=== PATIENT | male | born 1995 | race Caucasian/White ===

== ENCOUNTER 2019-10-15 13:15 | Emergency (ER) | payer OTHER, SELFPAY ==
[2019-10-15 13:20] VITALS: BP 136/94; PULSE 98; RESP 18; TEMP 36.6; O2SAT 100
--- NOTE | 2019-10-15 13:50 | ED.FEVER ---
HPI - Fever General Chief Complaint: Fever Stated Complaint: fever Time Seen by Provider: 10/15/19 13:50 Source: patient Mode of arrival: ambulatory Limitations: no limitations History of Present Illness HPI Narrative: A 24 y/o male presents to the ED with c/o a 101.9 degree F fever this morning. Pt did not feel well yesterday so he went to [facility] for evaluation. Pt had a chest X-ray and bloodwork done and tested negative for influenza and pneumonia. Pt was told that he could not get COVID-19 testing there. Pt presented to the ED today to get a second opinion because his [id number] works at a intermediate and she is unable to work until it is confirmed that the pt is negative for COVID-19. Pt denies any recent travel and sick contacts but notes that he works at [employer]. He reports a sore throat, diarrhea, body aches and a PMHx of pneumonia, but denies N/V. Onset (ago): hour(s) Measured temperature: 38.8 C Related Data Allergies Allergy/AdvReac Type Severity Reaction Status Date / Time No Known Allergies Allergy Unknown Unverified 05/01/17 15:03 Review of Systems Review of Systems: All systems reviewed & are unremarkable except as noted in HPI and below Constitutional: Constitutional: Reports fever(s) (101.9 degree F) Comments: Reports: body aches ENT: Reports sore throat Gastrointestinal: Gastrointestinal: Reports diarrhea, Denies nausea and Denies vomiting PMFSH Past Medical History Medical History ADHD Deliberate self-cutting Surgical History Surgical History H/O heart surgery as a child Family History Family History Mother Diabetes mellitus Father Heart disease HLD (hyperlipidemia) Grandparent Heart disease Social History Social History Smoking status: Never smoker Comments PCP: Dr. Young Exam Const: General: healthy appearing, no acute distress and alert Nutritional Appearance: well nourished Orientation/consciousness: patient oriented x3 HENMT: Head: normal to inspection Resp: Effort & Inspection: normal respiratory effort Auscultation: clear to auscultation bilaterally Cardio: Rate: regular rate Rhythm: regular rhythm GI: GI Palp: Yes Soft to palpation and No Tenderness to palpation present (GI) Skin: General skin exam: normal color Rashes: no rashes Neuro: General: patient oriented x3, moves all extremities and no focal motor deficits Speech: normal speech Extrem: General: normal to inspection Course Vital Signs Vital signs: Vital Signs Temperature 36.6 C 10/15/19 13:20 Pulse Rate 98 10/15/19 13:20 Respiratory Rate 18 10/15/19 13:20 Blood Pressure 136/94 H 10/15/19 13:20 Pulse Oximetry 100 10/15/19 13:20 Temperature 36.6 C 10/15/19 13:20 Pulse Rate 98 10/15/19 13:20 Respiratory Rate 18 10/15/19 13:20 Blood Pressure 136/94 H 10/15/19 13:20 Pulse Oximetry 100 10/15/19 13:20 MDM - Fever MDM Narrative Medical decision making narrative: He was evaluated at another hospital yesterday including negative chest x-ray and flu swab. He came in today because his [id number] was not aloud to work due to the uncertainty of his diagnosis. I explained that we would not be able to to test him for COVD-19 due to limited supplies and restrictive guidelines on testing. Medical Records Attestation: I reviewed the patient's medical records. Lab Data Attestation: I reviewed the patient's lab results. Labs: Influenza A Screen Negative Reference Range: Negative Influenza B Screen Negative Reference Range: Negative Discharge Plan Discharge Clinical Impression: Upper respiratory infection Qualifiers: URI type: unspecified URI Qualified Code(s): J06.9 - Acute upper respiratory infection, unspecif
== END 2019-10-15 14:14 | disposition home or self-care (01) ==
PROVIDERS: Emergency Provider Emergency Medicine; PCP Internal Medicine Infectious Disease
DX: J06.9 Acute upper respiratory infection, unspecified (principal)
CPT/HCPCS: 87804; 99283

== ENCOUNTER 2023-02-25 14:09 | Emergency (ER) | payer OTHER, SELFPAY ==
[2023-02-25 14:19] VITALS: BP 132/82; PULSE 72; RESP 16; TEMP 37.2; O2SAT 100
[2023-02-25 14:20] VITALS: BP 132/82; PULSE 72; RESP 16; TEMP 37.2; O2SAT 100
--- NOTE | 2023-02-25 14:37 | ED.EAR ---
HPI - Ear Problem General Chief complaint: Ear Stated complaint: Abdominal Pain/SOB Time Seen by Provider: 02/25/23 14:37 Source: patient Mode of arrival: ambulatory Limitations: no limitations History of Present Illness HPI Narrative: 27-year-old male presented for complaint of left ear pain for about 3 months. He endorses using hydrogen peroxide last week and was able to get some ear wax out. Since then he has used a Q-tip and states he also cut the inside of his ear. States it feels like something is in the ear, and has muffled hearing. He denies tinnitus, dizziness, nausea, vomiting, fevers or chills. MD Complaint: ear pain Related Data Allergies Allergy/AdvReac Type Severity Reaction Status Date / Time No Known Allergies Allergy Unknown Verified 02/25/23 14:20 Review of Systems Review of Systems: CONSTITUTIONAL: Denies malaise, chills, or fever. EYES: Denies visual changes, redness, or discharge. ENT: Denies rhinorrhea, congestion, sinus pain, and sore throat. Reports left ear pain CARDIOVASCULAR: Denies chest pain, palpitations, or edema. RESPIRATORY: Denies cough or dyspnea. GASTROINTESTINAL: Denies abdominal pain, nausea, vomiting, diarrhea SKIN: Denies rash or itching. MUSCULOSKELETAL: Denies myalgia. NEUROLOGIC: Denies headache. All systems reviewed & are unremarkable except as noted in HPI and below PMFSH Past Medical History Medical History ADHD Deliberate self-cutting Surgical History Surgical History H/O heart surgery as a child Family History Family History Mother Diabetes mellitus Father Heart disease HLD (hyperlipidemia) Grandparent Heart disease Social History Social History Smoking status: Never smoker Comments At time of signature, agree with nursing past medical, surgical, social and family history. There is no relevant family history pertinent to the presenting complaint Exam Narrative: GENERAL: Well-appearing, and in no acute distress. HEAD: Normocephalic EYES: PERRLA, conjunctivae clear ENT: Nares clear. Mucous membranes moist. Right canal with impacted cerumen; Left canal erythemaous and swollen with purulent drainage, left tragal tenderness. Oropharynx not erythematous without lesions. CHEST: Clear to auscultation, breath sounds equal. No wheezing, rhonchi, rales, or stridor. No respiratory distress, speaks in full sentences. HEART: Regular rate and rhythm. No murmur heard. SKIN: Warm, dry, no rash. NEURO: Alert and oriented x3. PSYCH: Normal mood and affect Course Course Emergency Course: Patient is aware of diagnosis, understands and agrees to treatment plan. Anticipatory guidance given. Patient agrees to follow-up as directed and is aware of reasons to seek care at the emergency department. Portions of this record may have been created with voice recognition software Level of Care: Express Care Visit Vital Signs Vital signs: Vital Signs Temperature 98.9 F 02/25/23 14:19 Pulse Rate 72 02/25/23 14:19 Respiratory Rate 16 02/25/23 14:19 Blood Pressure 132/82 02/25/23 14:19 Pulse Oximetry 100 02/25/23 14:19 Oxygen Delivery Room Air 02/25/23 14:19 Temperature 98.9 F 02/25/23 14:20 Pulse Rate 72 02/25/23 14:20 Respiratory Rate 16 02/25/23 14:20 Blood Pressure 132/82 02/25/23 14:20 Pulse Oximetry 100 02/25/23 14:20 Oxygen Delivery Room Air 02/25/23 14:20 Reviewed Medical Decision Making MDM Narrative Medical decision making narrative: Discussed physical exam findings, left otitis externa. Right cerumen impaction, he states he will address it with [id number] Debrox. Advised supportive measures and signs/symptoms to go to the ER. Patient is appropriate for outpatient treatment
== END 2023-02-25 14:50 | disposition home or self-care (01) ==
PROVIDERS: Emergency Provider Nurse Practitioner Family; PCP Internal Medicine Infectious Disease
DX: H61.21 Impacted cerumen, right ear (principal); H60.502 Unspecified acute noninfective otitis externa, left ear
CPT/HCPCS: 99213; G0463